=== PATIENT | female | born 1960 | race Caucasian/White ===

== ENCOUNTER 2018-01-24 02:06 | Inpatient (IN) | payer OTHER ==
[~2018-01-24] VITALS: Ht 177.8 cm; Wt 102.8 kg
[2018-01-24 02:18] VITALS: BP 148/65; PULSE 62; RESP 18; O2SAT 97
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
[2018-01-24] MEDS ORDERED: METOCLOPRAMIDE HCL 10 MG/2 ML VIAL IV PUSH ONE (03:15)
[2018-01-24] MEDS ORDERED: SODIUM CHLOR 0.9% 1000 ML INJ 1,000 ML IV ONE (03:15)
[2018-01-24] MEDS ORDERED: MORPHINE SULFATE 8 MG/ML INJ IV PUSH ONE (03:15)
[2018-01-24] MEDS ORDERED: SODIUM CHLOR 0.9% 1000 ML INJ 1,000 ML IV SCH (04:29)
[2018-01-24] MEDS ORDERED: ACETAMINOPHEN 325 MG TAB PO PRN (04:30)
[2018-01-24] MEDS ORDERED: SODIUM CHLORIDE 0.9% FLUSH 10 ML FLUSH IV FLUSH PRN (04:30)
[2018-01-24] MEDS ORDERED: METOCLOPRAMIDE HCL 10 MG/2 ML VIAL IV PUSH PRN (04:30)
[2018-01-24] MEDS ORDERED: BISACODYL 10 MG SUPP RECTAL PRN (04:30)
[2018-01-24] MEDS ORDERED: MORPHINE SULFATE 4 MG/ML INJ IV PRN (04:45)
[2018-01-24 05:27] VITALS: BP 132/64; PULSE 63; RESP 16; TEMP 97.6; O2SAT 97
[2018-01-24] MEDS: MORPHINE SULFATE 4 MG/ML INJ IV PRN ×2 (07:03→23:49)
[2018-01-24] MEDS ORDERED: GENTAMICIN SULFATE 80 MG/2 ML VIAL ONE (09:14)
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
[2018-01-24] MEDS ORDERED: VANCOMYCIN HCL 1000 MG VIAL ONE (09:32)
[2018-01-24] MEDS ORDERED: ceFAZolin 2 GM PREMIX 50 ML ONE (09:32)
[2018-01-24] MEDS ORDERED: FAMOTIDINE 20 MG/2 ML VIAL ONE (09:35)
[2018-01-24] MEDS ORDERED: ACETAMINOPHEN 1000 MG/100 ML 100 ML IV ONE ×2 (09:35→10:30)
[2018-01-24] MEDS ORDERED: LACTATED RINGER'S 1000 ML IV PRN (09:45)
[2018-01-24] MEDS ORDERED: METOPROLOL TARTRATE 25 MG TAB PO PRN (09:45)
[2018-01-24] MEDS ORDERED: SODIUM CHLORID 0.9% 500 ML IV PRN (09:45)
[2018-01-24] MEDS ORDERED: FAMOTIDINE 20 MG/2 ML VIAL IV ONE (10:30)
[2018-01-24] MEDS: LACTATED RINGER'S 1000 ML INJ 1,000 ML IV SCH (11:42)
[2018-01-24] MEDS ORDERED: Post-op Orders (for Pharmacy) XX ONE (11:45)
[2018-01-24] MEDS ORDERED: diphenhydrAMINE HCL 25 MG CAP PO PRN (11:45)
[2018-01-24] MEDS: ERGOCALCIFEROL (VIT D2) 50,000 UNIT CAP PO SCH (11:45)
[2018-01-24] MEDS ORDERED: ONDANSETRON ODT 4 MG TAB PO PRN (11:45)
[2018-01-24] MEDS ORDERED: NURSING INFORMATION XX PRN (11:45)
[2018-01-24] MEDS ORDERED: NALOXONE HCL 0.4 MG/ML AMP IV PUSH PRN (11:45)
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
[2018-01-24] MEDS ORDERED: DEXAMETHASONE SOD PHOS 4 MG/ML VIAL IV ONE (12:00)
[2018-01-24] MEDS ORDERED: GLYCOPYRROLATE 1 MG/5 ML SYRINGE IV PUSH ONE (12:00)
[2018-01-24] MEDS ORDERED: ePHEDrine/NS 25 MG/5 ML SYRINGE IV ONE (12:00)
[2018-01-24] MEDS ORDERED: LIDOCAINE HCL 1% PF 5 ML SYRINGE OTHER ONE (12:00)
[2018-01-24] MEDS ORDERED: NEOSTIGMINE 5 MG/5 ML SYRINGE IV PUSH ONE (12:00)
[2018-01-24] MEDS ORDERED: ROCURONIUM INJ 50 MG/5 ML SYRINGE IV PUSH ONE (12:00)
[2018-01-24] MEDS ORDERED: ONDANSETRON HCL 4 MG/2 ML VIAL IV ONE (12:00)
[2018-01-24] MEDS ORDERED: PROPOFOL 200 MG/20 ML AMP IV ONE (12:00)
[2018-01-24] MEDS ORDERED: LACTATED RINGER'S 1000 ML INJ 1,000 ML IV ONE (12:00)
[2018-01-24] MEDS ORDERED: *morphine SULFATE 8 MG/ML PERIprocedure ONLY ONE (12:03)
[2018-01-24] MEDS ORDERED: *MEPERIDINE 25 MG INJ VIAL PERIprocedural Use ONLY ONE (12:19)
[2018-01-24] MEDS ORDERED: DO NOT ADM ANY ANTICOAGULANT DRUGS PRN (12:30)
[2018-01-24] MEDS: CALCIUM/VITAMIN D 250 MG/125 U TAB PO SCH ×2 (13:00→17:51)
--- NOTE | 2018-01-24 14:31 | RADRPT ---
EXAM DATE: 01/24/2018 1:45 PM EDT AGE/SEX: 57 years / Female INDICATIONS: ORIF right tibial plateau fracture. CLINICAL DATA: This is the patient's initial encounter. Patient reports that signs and symptoms have been present for 1 day and indicates a pain score of Nonresponsive. MEDICAL/SURGICAL HISTORY: Non-responsive. Non-responsive. COMPARISON: No prior [facility] exams available for comparison. FINDINGS: AP and lateral spot fluoroscopic images obtained in the operating room during a procedure demonstrate s placement of a lateral proximal tibial side plate with multiple interlocking screws. Cement materia l is also present within the lateral and mid tibial metaphysis. CONCLUSION: Images obtained during right tibia ORIF, as above. Electronically signed by: Henrique Roman MD 01/24/2018 2:29 PM EDT
[2018-01-24] MEDS ORDERED: *morphine SULFATE 4 MG/ML PERIprocedure ONLY ONE ×2 (15:22→16:03)
--- NOTE | 2018-01-24 15:29 | EKG ---
Date Performed: 01/24/2018 Time Performed: 08:33:22 PTAGE: 57 years EKG: SINUS BRADYCARDIA BORDERLINE ECG NO PREVIOUS TRACING DOCTOR: Yuly Garcia Interpretating Date/Time 01/24/2018 15:26:11
[2018-01-24 16:00] VITALS: BP 108/55; PULSE 73; RESP 18; TEMP 99.1; O2SAT 91
[2018-01-24] MEDS: ACETAMINOPHEN/HYDROcodone 325 MG/10 MG TAB PO PRN (17:12)
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
[2018-01-24] MEDS: ceFAZolin 2 GM PREMIX 50 ML IV SCH (17:52)
[2018-01-24] MEDS ORDERED: cloNIDine HCL 0.1 MG TAB PO PRN (18:00)
[2018-01-24 20:25] VITALS: BP 103/73; PULSE 78; RESP 17; TEMP 97.6; O2SAT 96
[2018-01-24] MEDS: SODIUM CHLORIDE 0.9% FLUSH 10 ML FLUSH IV FLUSH SCH (21:00)
[2018-01-24] MEDS: VANCOMYCIN INJ 1,000 MG in SODIUM CHLOR 0.9% 250 ML INJ 250 ML IV SCH (21:42)
[2018-01-24] MEDS: DOCUSATE SODIUM 50 MG/SENNA 8.6 MG TAB PO SCH (21:42)
[2018-01-24] MEDS: ACETAMINOPHEN/HYDROcodone 325 MG/7.5 MG TAB PO PRN (22:46)
[2018-01-25] MEDS: LACTATED RINGER'S 1000 ML INJ 1,000 ML IV SCH ×2 (00:12→12:42)
[2018-01-25 00:50] VITALS: BP 107/65; PULSE 61; RESP 17; TEMP 97.7; O2SAT 96
[2018-01-25] MEDS: ceFAZolin 2 GM PREMIX 50 ML IV SCH ×3 (01:45→17:45)
[2018-01-25] MEDS: ACETAMINOPHEN/HYDROcodone 325 MG/10 MG TAB PO PRN ×6 (02:43→21:38)
[2018-01-25] MEDS: MORPHINE SULFATE 4 MG/ML INJ IV PRN ×2 (03:56→18:38)
[2018-01-25 04:40] VITALS: BP 115/56; PULSE 68; RESP 17; TEMP 97.7; O2SAT 96
--- NOTE | 2018-01-25 06:35 | PD.ORT.PN ---
Subjective Subjective Remarks Patient complains of pain. Status post ORIF right lateral tibial plateau fracture on 01/24/2018 Objective Vitals Vital Signs Date Time Temp Pulse Resp B/P (MAP) Pulse Ox O2 Delivery O2 Flow Rate FiO2 01/25/18 04:40 97.7 68 17 115/56 (75) 96 01/25/18 00:50 97.7 61 17 107/65 (79) 96 01/24/18 20:25 97.6 78 17 103/73 (83) 96 01/24/18 19:51 Nasal Cannula 2.00 01/24/18 16:15 97.6 63 20 116/59 (78) 97 Nasal Cannula 3 01/24/18 16:00 99.1 73 18 108/55 (72) 91 01/24/18 15:00 63 20 116/59 (78) 97 Nasal Cannula 3 01/24/18 14:00 64 20 108/57 (74) 97 Nasal Cannula 3 01/24/18 13:00 66 20 130/61 (84) 91 Nasal Cannula 3 01/24/18 12:45 65 20 145/63 (90) 93 Nasal Cannula 3 01/24/18 12:30 62 20 138/65 (89) 97 Nasal Cannula 3 01/24/18 12:15 68 20 140/69 (92) 97 Nasal Cannula 3 01/24/18 11:57 97.6 69 20 140/66 (90) 95 Nasal Cannula 3 I/O 01/24/18 01/24/18 01/24/18 01/25/18 01/25/18 01/25/18 07:00 15:00 23:00 07:00 15:00 23:00 Intake Total 1400 ml 396 ml 480 ml Output Total 50 ml Balance 1350 ml 396 ml 480 ml Intake Oral 480 ml IV Total 396 ml Other 1400 ml Output Estimated Blood Loss 50 ml # Voids 3 # Bowel Movements 0 Objective Remarks Patient is awake and alert. Appears mildly anxious. Right lower extremity has clean dry dressings in place. Neurovascularly intact right foot. Minimal pain with passive motion of toes and ankle. Assessment & Plan Assessment and Plan Postop day #1 status post ORIF right lateral tibial plateau strict nonweightbearing right leg, no quad sets or leg lifts Lovenox We will add gabapentin and ibuprofen for pain control Physical therapy consult Case management consult for discharge planning Bharat Morales MD Jan 25, 2018 06:35
[2018-01-25 08:01] VITALS: BP 95/52; PULSE 69; RESP 18; TEMP 97.9; O2SAT 94
[2018-01-25 08:18] LABS: AUTOMATED NEUTROPHIL # 1.3 TH/MM3 (1.8-7.7); BASOPHIL % 0.4 % (0.0-2.0); EOSINOPHIL % 0.7 % (0.0-4.0); HEMATOCRIT 31.6 % (35.0-46.0); HEMOGLOBIN 10.7 GM/DL (11.6-15.3); LYMPH % 39.2 % (9.0-44.0); MEAN CELL VOLUME 98.5 FL (80.0-100.0); MEAN CORPUSCULAR HEMOGLOBIN 33.3 PG (27.0-34.0); MEAN CORPUSCULAR HGB CONC 33.8 % (32.0-36.0); MEAN PLATELET VOLUME 8.4 FL (7.0-11.0); MONO % 9.6 % (0.0-8.0); MONOCYTE # 0.2 TH/MM3 (0-0.9); NEUT % 50.1 % (16.0-70.0); PLATELET COUNT 128 TH/MM3 (150-450); RED BLOOD COUNT 3.21 MIL/MM3 (4.00-5.30); RED CELL DISTRIBUTION WIDTH 17.2 % (11.6-17.2); WHITE BLOOD COUNT 2.6 TH/MM3 (4.0-11.0)
[2018-01-25 08:39] LABS: BICARBONATE 22.6 MEQ/L (21.0-32.0); CALCIUM 7.8 MG/DL (8.5-10.1); CREATININE 0.83 MG/DL (0.50-1.00)
[2018-01-25] MEDS: DOCUSATE SODIUM 50 MG/SENNA 8.6 MG TAB PO SCH ×2 (08:44→22:22)
[2018-01-25] MEDS: SODIUM CHLORIDE 0.9% FLUSH 10 ML FLUSH IV FLUSH SCH ×2 (08:44→22:22)
[2018-01-25] MEDS: CHOLECALCIFEROL (VIT D3) 1000 UNIT TAB PO SCH (08:44)
[2018-01-25] MEDS: IBUPROFEN 600 MG TAB PO SCH ×2 (08:44→17:44)
[2018-01-25] MEDS: GABAPENTIN 300 MG CAP PO SCH ×2 (08:44→22:22)
[2018-01-25] MEDS: CALCIUM/VITAMIN D 250 MG/125 U TAB PO SCH ×3 (08:44→17:45)
[2018-01-25] MEDS: ENOXAPARIN SODIUM 30 MG/0.3 ML SYRINGE SQ SCH (10:39)
[2018-01-25] MEDS: VANCOMYCIN INJ 1,000 MG in SODIUM CHLOR 0.9% 250 ML INJ 250 ML IV SCH (10:41)
[2018-01-25 12:13] VITALS: BP 126/61; PULSE 60; RESP 17; TEMP 98.3; O2SAT 95
[2018-01-25 16:00] VITALS: BP 99/54; PULSE 63; RESP 18; TEMP 98.2; O2SAT 95
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
--- NOTE | 2018-01-25 17:36 | RADRPT ---
EXAM DATE: 01/25/2018 5:32 PM EDT AGE/SEX: 57 years / Female INDICATIONS: Shortness of breath. CLINICAL DATA: This is the patient's subsequent encounter. Patient reports that signs and symptoms h ave been present for 1 day and indicates a pain score of 0/10. MEDICAL/SURGICAL HISTORY: None. None. COMPARISON: No prior exams available for comparison. FINDINGS: The lungs are clear without infiltrate, nodule, or mass. There is no appreciable pleural effusion for technique. Heart and mediastinum are unremarkable. CONCLUSION: No acute cardiopulmonary disease. Electronically signed by: Ajay Gordillo MD 01/25/2018 5:35 PM EDT
[2018-01-25 20:00] VITALS: BP 117/58; PULSE 65; RESP 20; TEMP 98.5; O2SAT 94
[2018-01-25 20:13] LABS: % SATURATION IRON PROFILE 8.2 % (20-50); IRON (FE) 25 MCG/DL (50-170); TOTAL IRON BINDING CAPACITY 305 MCG/DL (250-450)
[2018-01-25 20:39] LABS: FERRITIN 21 NG/ML (8-252); FOLATE 6.7 NG/ML (3.1-17.5)
[2018-01-26] VITALS: BP 111/55; PULSE 65; RESP 20; TEMP 98.5; O2SAT 96
[2018-01-26] MEDS: IBUPROFEN 600 MG TAB PO SCH ×3 (00:57→16:47)
[2018-01-26] MEDS: LACTATED RINGER'S 1000 ML INJ 1,000 ML IV SCH ×2 (01:12→12:16)
[2018-01-26] MEDS: ceFAZolin 2 GM PREMIX 50 ML IV SCH ×2 (01:53→08:48)
[2018-01-26] MEDS: ACETAMINOPHEN/HYDROcodone 325 MG/10 MG TAB PO PRN ×5 (01:54→18:02)
[2018-01-26 04:00] VITALS: BP 133/63; PULSE 75; RESP 18; TEMP 98.7; O2SAT 92
[2018-01-26 04:18] LABS: BILIRUBIN, URINE NEG (NEG); BLOOD, URINE NEG (NEG); GLUCOSE,URINE NEG (NEG); KETONE, URINE TRACE mg/dL (NEG); MUCUS URINE FEW /lpf (OCC); NITRITE,URINE NEG (NEG); SQUAMOUS EPITHELIAL CELL URINE 1 /hpf (0-5); URINE COLOR YELLOW (YELLW/STRAW); URINE LEUKOCYTE ESTERASE NEG (NEG)
[2018-01-26 05:54] LABS: AUTOMATED NEUTROPHIL # 0.9 TH/MM3 (1.8-7.7); BASOPHIL % 0.3 % (0.0-2.0); HEMOGLOBIN 9.5 GM/DL (11.6-15.3); LYMPH % 46.1 % (9.0-44.0); LYMPHOCYTE # 0.9 TH/MM3 (1.0-4.8); MEAN CELL VOLUME 97.6 FL (80.0-100.0); MEAN CORPUSCULAR HEMOGLOBIN 33.2 PG (27.0-34.0); MEAN PLATELET VOLUME 9.2 FL (7.0-11.0); MONO % 9.5 % (0.0-8.0); MONOCYTE # 0.2 TH/MM3 (0-0.9); NEUT % 43.1 % (16.0-70.0); PLATELET COUNT 107 TH/MM3 (150-450); RED BLOOD COUNT 2.87 MIL/MM3 (4.00-5.30); RED CELL DISTRIBUTION WIDTH 16.4 % (11.6-17.2)
[2018-01-26] MEDS ORDERED: WALKER WHEELS/F1 MIS (06:31)
[2018-01-26] MEDS ORDERED: WHEEMIS3 (06:31)
[2018-01-26] MEDS ORDERED: VITA500012 PO (06:31)
[2018-01-26] MEDS ORDERED: XARE10TA PO (06:31)
[2018-01-26] MEDS ORDERED: CALCTAB19 PO (06:31)
[2018-01-26] MEDS ORDERED: VITA2000 PO (06:31)
[2018-01-26] MEDS ORDERED: HYDR-3583 PO (06:31)
--- NOTE | 2018-01-26 06:33 | PD.ORT.PN ---
Subjective Subjective Remarks POD 2 s/p ORIF right tibial plateau doing well. pain controlled. out of bed with therapy Objective Vitals Vital Signs Date Time Temp Pulse Resp B/P (MAP) Pulse Ox O2 Delivery O2 Flow Rate FiO2 01/26/18 04:00 98.7 75 18 133/63 (86) 92 01/26/18 00:00 98.5 65 20 111/55 (73) 96 01/25/18 20:00 98.5 65 20 117/58 (77) 94 01/25/18 18:46 17 01/25/18 18:46 17 01/25/18 18:46 17 01/25/18 16:00 98.2 63 18 99/54 (69) 95 01/25/18 12:13 98.3 60 17 126/61 (82) 95 01/25/18 08:15 Room Air 01/25/18 08:01 97.9 69 18 95/52 (66) 94 I/O 01/25/18 01/25/18 01/25/18 01/26/18 01/26/18 01/26/18 07:00 15:00 23:00 07:00 15:00 23:00 Intake Total 480 ml 300 ml 950 ml Balance 480 ml 300 ml 950 ml Intake Oral 480 ml 900 ml IV Total 300 ml 50 ml # Voids 3 2 # Bowel Movements 0 1 Result Diagram: 01/26/18 0414 01/25/18 0758 Objective Remarks RLE: dressings clean and dry. intact. NVI. compartments soft. +CKS Assessment & Plan Assessment and Plan Postop day #2 status post ORIF right lateral tibial plateau strict nonweightbearing right leg, no quad sets or leg lifts Lovenox daily dressing changes CM for DC to SNF f/u with Carmen or JONI in 2 weeks Eron Armendariz/Teaching Assistant JONI Jan 26, 2018 06:33
[2018-01-26 07:24] LABS: BANDS 3 % (0-6); BASOPHILS 1 % (0-2); LYMPHOCYTES 33 % (9-44); MONOCYTES 11 % (0-8); POLYS (SEG NEUTROPHILS) 49 % (16-70)
[2018-01-26 08:12] VITALS: BP 110/56; PULSE 68; RESP 19; TEMP 98.2; O2SAT 93
[2018-01-26] MEDS: CALCIUM/VITAMIN D 250 MG/125 U TAB PO SCH ×3 (08:47→16:47)
[2018-01-26] MEDS: GABAPENTIN 300 MG CAP PO SCH ×2 (08:47→21:46)
[2018-01-26] MEDS: CHOLECALCIFEROL (VIT D3) 1000 UNIT TAB PO SCH (08:47)
[2018-01-26] MEDS: DOCUSATE SODIUM 50 MG/SENNA 8.6 MG TAB PO SCH ×2 (08:47→21:46)
[2018-01-26] MEDS: SODIUM CHLORIDE 0.9% FLUSH 10 ML FLUSH IV FLUSH SCH ×2 (08:48→21:47)
[2018-01-26] MEDS: SENNOSIDES 8.6 MG TAB PO PRN (08:52)
[2018-01-26] MEDS: ENOXAPARIN SODIUM 30 MG/0.3 ML SYRINGE SQ SCH (10:15)
[2018-01-26 11:39] LABS: RETIC # 72.1 MIL/L (20.0-150.0); RETIC % 2.6 % (0.4-3.0)
[2018-01-26 12:09] VITALS: BP 102/54; PULSE 76; RESP 18; TEMP 98.9; O2SAT 93
[2018-01-26 12:59] LABS: PROTHROMBIN TIME - PATIENT 10.1 SEC (9.8-11.6)
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
[2018-01-26 16:06] VITALS: BP 111/56; PULSE 69; RESP 19; TEMP 98.1; O2SAT 93
[2018-01-26] MEDS: BACITRACIN TOP OINT 15 GM TUBE TOPICAL SCH (16:51)
[2018-01-26] MEDS: MAGNESIUM HYDROXIDE SUSP 30 ML CUP PO PRN (18:03)
[2018-01-26 20:00] VITALS: BP 126/60; PULSE 71; RESP 18; TEMP 98.1; O2SAT 94
[2018-01-26 20:20] LABS: HEMOGLOBIN A1C 5.3 % (4.3-6.0)
[2018-01-26] MEDS: ACETAMINOPHEN/HYDROcodone 325 MG/7.5 MG TAB PO PRN (21:46)
[2018-01-27] VITALS: BP 120/77; PULSE 67; RESP 18; TEMP 99.3; O2SAT 94
[2018-01-27] MEDS: IBUPROFEN 600 MG TAB PO SCH
[2018-01-27] MEDS: ACETAMINOPHEN/HYDROcodone 325 MG/10 MG TAB PO PRN ×6 (02:08→22:26)
[2018-01-27 04:00] VITALS: BP 129/69; PULSE 71; RESP 18; TEMP 99.7; O2SAT 94
[2018-01-27] MEDS ORDERED: MORPHINE SULFATE 4 MG/ML INJ IV PUSH ONE (04:00)
--- NOTE | 2018-01-27 06:45 | PD.ORT.PN ---
Subjective Subjective Remarks Patient complains of pain. Status post ORIF right lateral tibial plateau fracture on 01/24/2018 Objective Vitals Vital Signs Date Time Temp Pulse Resp B/P (MAP) Pulse Ox O2 Delivery O2 Flow Rate FiO2 01/27/18 04:00 99.7 71 18 129/69 (89) 94 01/27/18 00:00 99.3 67 18 120/77 (91) 94 01/26/18 20:00 98.1 71 18 126/60 (82) 94 01/26/18 17:58 18 01/26/18 16:06 98.1 69 19 111/56 (74) 93 01/26/18 15:33 18 01/26/18 12:09 98.9 76 18 102/54 (70) 93 01/26/18 08:12 98.2 68 19 110/56 (74) 93 I/O 01/26/18 01/26/18 01/26/18 01/27/18 01/27/18 01/27/18 07:00 15:00 23:00 07:00 15:00 23:00 Intake Total 800 ml 1400 ml 480 ml Output Total 400 ml Balance 400 ml 1400 ml 480 ml Intake Oral 800 ml 1400 ml 480 ml Output Urine Total 400 ml # Voids 3 5 Result Diagram: 01/26/18 0414 01/25/18 0758 Other Results Laboratory Tests Test 01/26/18 12:00 Prothromb Time International Ratio 1.0 RATIO Prothrombin Time 10.1 SEC (9.8-11.6) Objective Remarks RLE: dressings clean and dry. intact. NVI. compartments soft. +CKS Pt is awake and alert, NAD Assessment & Plan Assessment and Plan Postop day #3 status post ORIF right lateral tibial plateau strict nonweightbearing right leg, no quad sets or leg lifts Lovenox daily dressing changes CM for DC to SNF today today f/u with Carmen or JONI in 2 weeks Bharat Morales MD Jan 27, 2018 06:45
[2018-01-27] MEDS: CHOLECALCIFEROL (VIT D3) 1000 UNIT TAB PO SCH (07:12)
[2018-01-27] MEDS: LACTULOSE SYRUP 20 GM/30 ML CUP PO PRN (07:12)
[2018-01-27] MEDS: CALCIUM/VITAMIN D 250 MG/125 U TAB PO SCH ×3 (07:12→18:24)
[2018-01-27] MEDS: GABAPENTIN 300 MG CAP PO SCH ×2 (07:13→22:08)
[2018-01-27] MEDS: DOCUSATE SODIUM 50 MG/SENNA 8.6 MG TAB PO SCH ×2 (07:13→22:08)
[2018-01-27] MEDS: BACITRACIN TOP OINT 15 GM TUBE TOPICAL SCH (07:13)
[2018-01-27] MEDS: SODIUM CHLORIDE 0.9% FLUSH 10 ML FLUSH IV FLUSH SCH ×2 (07:14→22:08)
[2018-01-27 08:00] VITALS: BP 129/64; PULSE 78; RESP 18; TEMP 98.2; O2SAT 94
[2018-01-27 08:02] LABS: HEMATOCRIT 30.6 % (35.0-46.0); HEMOGLOBIN 10.6 GM/DL (11.6-15.3); MEAN CELL VOLUME 97.6 FL (80.0-100.0); MEAN CORPUSCULAR HEMOGLOBIN 33.8 PG (27.0-34.0); MEAN CORPUSCULAR HGB CONC 34.6 % (32.0-36.0); PLATELET COUNT 131 TH/MM3 (150-450); RED BLOOD COUNT 3.14 MIL/MM3 (4.00-5.30); RED CELL DISTRIBUTION WIDTH 16.1 % (11.6-17.2); WHITE BLOOD COUNT 2.2 TH/MM3 (4.0-11.0)
[2018-01-27 08:17] LABS: ALBUMIN 2.9 GM/DL (3.4-5.0); BICARBONATE 27.6 MEQ/L (21.0-32.0); CALCIUM 8.4 MG/DL (8.5-10.1); CREATININE 0.56 MG/DL (0.50-1.00); DIRECT BILIRUBIN ADULT 0.1 MG/DL (0.0-0.2); MAGNESIUM 2.3 MG/DL (1.5-2.5)
[2018-01-27 08:19] LABS: INDIRECT BILIRUBIN 0.4 MG/DL (0.0-0.8); TOTAL BILIRUBIN ADULT 0.5 MG/DL (0.2-1.0); TOTAL PROTEIN 6.4 GM/DL (6.4-8.2)
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
[2018-01-27] MEDS: ENOXAPARIN SODIUM 30 MG/0.3 ML SYRINGE SQ SCH (11:01)
[2018-01-27 12:00] VITALS: BP 125/65; PULSE 82; RESP 18; TEMP 98.3; O2SAT 95
[2018-01-27 13:30] LABS: IRON (FE) 16 MCG/DL (50-170)
[2018-01-27 13:56] LABS: % SATURATION IRON PROFILE 4.9 % (20-50); FERRITIN 29 NG/ML (8-252); FOLATE 10.7 NG/ML (3.1-17.5); TOTAL IRON BINDING CAPACITY 323 MCG/DL (250-450)
--- NOTE | 2018-01-27 15:49 | RADRPT ---
EXAM DATE: 01/27/2018 3:45 PM EDT AGE/SEX: 57 years / Female INDICATIONS: Hepatomegaly. CLINICAL DATA: This is the patient's initial encounter. Patient reports that signs and symptoms have been present for 4 - 6 days and indicates a pain score of 3/10. MEDICAL/SURGICAL HISTORY: . Joint pain. Tonsillectomy. Hysterectomy. section. COMPARISON: No prior exams available for comparison. MEASUREMENTS (cm x cm x cm): Liver:__ 17.8 cm cm length Common Bile Duct:__ 4mm Right Kidney:__ 13.4 x 5.1 x 5.0 cm FINDINGS: Liver: Coarse echotexture suggesting fatty change or diffuse hepatocellular process. Portal Vein: Hepatopedal flow seen in portal vein. Common Duct: No intraluminal mass or stone visualized. Gallbladder: The gallbladder appears distended measures 11 cm without definite gallstones. There is no pericholecystic fluid. Gallbladder Wall: 5 mm Pancreas: The visualized portions are within normal limits Right Kidney: No mass or hydronephrosis Other: Spleen measures 11.7 cm in size without focal lesions. CONCLUSION: 1. Distended gallbladder without definite stones. 2. The liver is slightly echogenic which may be due to fatty infiltration and or hepatocellular dysf unction. Electronically signed by: Ajay Gordillo MD 01/27/2018 3:48 PM EDT
[2018-01-27 16:00] VITALS: BP 125/65; PULSE 80; RESP 18; TEMP 98.1; O2SAT 95
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
[2018-01-27 20:00] VITALS: BP 147/68; PULSE 84; RESP 22; TEMP 99.1; O2SAT 95
[2018-01-28] VITALS: BP 143/76; PULSE 76; RESP 20; TEMP 99.3; O2SAT 95
[2018-01-28] MEDS: ACETAMINOPHEN/HYDROcodone 325 MG/10 MG TAB PO PRN ×5 (01:58→21:56)
[2018-01-28 06:21] LABS: HEMATOCRIT 30.1 % (35.0-46.0); HEMOGLOBIN 10.4 GM/DL (11.6-15.3); MEAN CELL VOLUME 97.7 FL (80.0-100.0); MEAN CORPUSCULAR HEMOGLOBIN 33.6 PG (27.0-34.0); MEAN CORPUSCULAR HGB CONC 34.4 % (32.0-36.0); MEAN PLATELET VOLUME 8.3 FL (7.0-11.0); PLATELET COUNT 144 TH/MM3 (150-450); RED BLOOD COUNT 3.09 MIL/MM3 (4.00-5.30); RED CELL DISTRIBUTION WIDTH 15.8 % (11.6-17.2)
[2018-01-28 06:46] LABS: BICARBONATE 28.6 MEQ/L (21.0-32.0); CALCIUM 8.5 MG/DL (8.5-10.1); CREATININE 0.52 MG/DL (0.50-1.00)
[2018-01-28 08:00] VITALS: BP 157/80; PULSE 73; RESP 18; TEMP 98; O2SAT 95
[2018-01-28] MEDS: CHOLECALCIFEROL (VIT D3) 1000 UNIT TAB PO SCH (09:58)
[2018-01-28] MEDS: CALCIUM/VITAMIN D 250 MG/125 U TAB PO SCH ×3 (09:59→17:34)
[2018-01-28] MEDS: GABAPENTIN 300 MG CAP PO SCH ×2 (10:01→21:57)
[2018-01-28] MEDS: DOCUSATE SODIUM 50 MG/SENNA 8.6 MG TAB PO SCH ×2 (10:01→21:57)
[2018-01-28] MEDS: SODIUM CHLORIDE 0.9% FLUSH 10 ML FLUSH IV FLUSH SCH ×2 (10:02→21:57)
[2018-01-28] MEDS: ENOXAPARIN SODIUM 30 MG/0.3 ML SYRINGE SQ SCH (10:02)
[2018-01-28] MEDS: BACITRACIN TOP OINT 15 GM TUBE TOPICAL SCH (10:04)
[2018-01-28] MEDS ORDERED: POTASSIUM CHLORIDE 20 MEQ CONTROLLED RELEASE TAB PO ONE (10:15)
[2018-01-28 12:00] VITALS: BP_SYST 154; BP_SYST 165; BP_DIAS 65; BP_DIAS 69; PULSE 62; PULSE 96; RESP 18; TEMP 98; O2SAT 94; O2SAT 96
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
[2018-01-28] MEDS: ACETAMINOPHEN/HYDROcodone 325 MG/7.5 MG TAB PO PRN (14:08)
[2018-01-28 16:00] VITALS: BP 149/66; PULSE 81; RESP 18; TEMP 98; O2SAT 97
[2018-01-28 20:00] VITALS: BP 147/63; PULSE 73; RESP 20; TEMP 99.1; O2SAT 96
[2018-01-28] MEDS: ZOLPIDEM TARTRATE 5 MG TAB PO PRN (21:56)
[2018-01-29] VITALS: BP 134/65; PULSE 69; RESP 20; TEMP 98.4; O2SAT 95
[2018-01-29] MEDS: ACETAMINOPHEN/HYDROcodone 325 MG/10 MG TAB PO PRN ×8 (01:00→21:19)
[2018-01-29 04:00] VITALS: BP 118/61; PULSE 80; RESP 20; TEMP 98.2; O2SAT 94
[2018-01-29 08:00] VITALS: BP 136/69; PULSE 73; RESP 18; TEMP 98.9; O2SAT 94
[2018-01-29 08:36] LABS: AUTOMATED NEUTROPHIL # 0.6 TH/MM3 (1.8-7.7); BASOPHIL % 0.6 % (0.0-2.0); EOSINOPHIL # 0.1 TH/MM3 (0-0.4); EOSINOPHIL % 4.7 % (0.0-4.0); HEMATOCRIT 29.2 % (35.0-46.0); HEMOGLOBIN 10.2 GM/DL (11.6-15.3); LYMPH % 53.6 % (9.0-44.0); LYMPHOCYTE # 1.1 TH/MM3 (1.0-4.8); MEAN CELL VOLUME 96.1 FL (80.0-100.0); MEAN CORPUSCULAR HEMOGLOBIN 33.5 PG (27.0-34.0); MEAN CORPUSCULAR HGB CONC 34.9 % (32.0-36.0); MEAN PLATELET VOLUME 8.9 FL (7.0-11.0); MONO % 9.3 % (0.0-8.0); MONOCYTE # 0.2 TH/MM3 (0-0.9); NEUT % 31.8 % (16.0-70.0); PLATELET COUNT 159 TH/MM3 (150-450); RED BLOOD COUNT 3.04 MIL/MM3 (4.00-5.30); RED CELL DISTRIBUTION WIDTH 15.9 % (11.6-17.2)
[2018-01-29] MEDS: DOCUSATE SODIUM 50 MG/SENNA 8.6 MG TAB PO SCH ×2 (09:00→21:19)
[2018-01-29 09:15] LABS: BANDS 1 % (0-6); BASOPHILS 1 % (0-2); LYMPHOCYTES 55 % (9-44); MONOCYTES 2 % (0-8); NEUTROPHIL # MANUAL DIFF 0.8 TH/MM3 (1.8-7.7); POLYS (SEG NEUTROPHILS) 39 % (16-70)
[2018-01-29] MEDS: SODIUM CHLORIDE 0.9% FLUSH 10 ML FLUSH IV FLUSH SCH (09:22)
[2018-01-29] MEDS: GABAPENTIN 300 MG CAP PO SCH ×2 (09:22→21:19)
[2018-01-29] MEDS: ENOXAPARIN SODIUM 30 MG/0.3 ML SYRINGE SQ SCH (09:22)
[2018-01-29] MEDS: BACITRACIN TOP OINT 15 GM TUBE TOPICAL SCH (09:22)
[2018-01-29] MEDS: CALCIUM/VITAMIN D 250 MG/125 U TAB PO SCH ×3 (09:22→17:06)
[2018-01-29] MEDS: CHOLECALCIFEROL (VIT D3) 1000 UNIT TAB PO SCH (09:22)
[2018-01-29 16:00] VITALS: BP 129/57; PULSE 75; RESP 18; TEMP 98.7; O2SAT 95
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
[2018-01-29 20:30] VITALS: BP 140/68; PULSE 71; RESP 16; TEMP 99; O2SAT 96
[2018-01-29] MEDS: ZOLPIDEM TARTRATE 5 MG TAB PO PRN (21:19)
[2018-01-29 23:50] VITALS: BP 135/64; PULSE 75; RESP 16; TEMP 99; O2SAT 96
[2018-01-30] MEDS: ACETAMINOPHEN/HYDROcodone 325 MG/10 MG TAB PO PRN ×6 (02:33→21:56)
[2018-01-30] MEDS: SODIUM CHLORIDE 0.9% FLUSH 10 ML FLUSH IV FLUSH SCH ×3 (06:05→21:57)
[2018-01-30 08:00] VITALS: BP 136/65; PULSE 73; RESP 18; TEMP 98.3; O2SAT 95
--- NOTE | 2018-01-30 08:06 | PD.ONC.PN ---
Subjective Subjective Remarks Patient seen and examined, vital signs, labs and medications reviewed. Subjectively; her major complaint is that of pain in her right knee. She tells me she was however able to walk about 50 steps yesterday with the help of a walker. She denies overt bleeding, difficulty breathing, chest pain, PND, orthopnea. Objective Data Date Time Temp Pulse Resp B/P (MAP) Pulse Ox O2 Delivery O2 Flow Rate FiO2 01/29/18 23:50 99.0 75 16 135/64 (87) 96 01/29/18 20:30 99.0 71 16 140/68 (92) 96 01/29/18 16:00 98.7 75 18 129/57 (81) 95 01/29/18 09:30 Room Air 01/30/18 01/30/18 01/30/18 07:00 15:00 23:00 Intake Total 720 ml Balance 720 ml Result Diagram: 01/29/18 0719 01/28/18 0501 Administered Medications Medications (Trade) Dose Ordered Sig/Larry Route PRN Reason Start Time Stop Time Status Last Admin Dose Admin Sodium Chloride (NS Flush) 2 ml BID IV FLUSH 01/24/18 09:00 01/30/18 06:05 Acetaminophen/ Hydrocodone Bitart ([place] 7.5-325 Mg) 1 tab Q4H PRN PO PAIN SCALE 6 TO 10 01/24/18 04:30 01/28/18 14:08 Magnesium Hydroxide (Milk Of Magnesia Liq) 30 ml Q12H PRN PO Mild constipation 01/24/18 04:30 01/26/18 18:03 Sennosides (Senokot) 17.2 mg Q12H PRN PO Moderate constipation 01/24/18 04:30 01/26/18 08:52 Lactulose (Lactulose Liq) 30 ml DAILY PRN PO SEVERE CONSITIPATION 01/24/18 04:30 01/27/18 07:12 Enoxaparin Sodium (Lovenox Inj) 30 mg Q24H SQ 01/25/18 11:00 01/29/18 09:22 Acetaminophen/ Hydrocodone Bitart ([place] 10-325 Mg) 1 tab Q3H PRN PO PAIN 3<10 01/24/18 11:45 01/30/18 06:05 Calcium/Vitamin D (Oscal-D 250-125) 250 mg TID PO 01/24/18 13:00 01/29/18 12:20 Cholecalciferol (Vitamin D3) 1,000 units DAILY PO 01/25/18 09:00 01/29/18 09:22 Senna/Docusate Sodium (Veena-Colace) 1 tab BID PO 01/24/18 21:00 01/29/18 21:19 Gabapentin (Neurontin) 300 mg BID PO 01/25/18 09:00 01/29/18 21:19 Bacitracin (Baciguent Oint) 1 applic DAILY TOPICAL 01/26/18 16:05 01/29/18 09:22 Zolpidem Tartrate (Ambien) 5 mg HS PRN PO insomnia 01/28/18 12:00 01/29/18 21:19 Objective Remarks GENERAL: Middle-aged lady, sitting up in bed, appears to be no acute distress, wearing sunglasses, she is obese , in no apparent distress. SKIN: No rashes, ecchymoses or lesions. Cool and dry. HEAD: Atraumatic. Normocephalic. No temporal or scalp tenderness. EYES: Pupils equal round and reactive. Extraocular motions intact. No scleral icterus. No injection or drainage. ENT: Nose without bleeding, purulent drainage or septal hematoma. Throat without erythema, tonsillar hypertrophy or exudate. Uvula midline. Airway patent. NECK: Trachea midline. No JVD or lymphadenopathy. Supple, nontender, no meningeal signs. CARDIOVASCULAR: Regular rate and rhythm without murmurs, gallops, or rubs. RESPIRATORY: Clear to auscultation. Breath sounds equal bilaterally. No wheezes , rales, or rhonchi. GASTROINTESTINAL: Abdomen soft, non-tender, nondistended. No hepato-splenomegaly , or palpable masses. No guarding. MUSCULOSKELETAL: Right leg in a removable cast, she has a big bag of ice on top of her right knee. Extremities without clubbing, cyanosis, or edema. No joint tenderness, effusion, or edema noted. No calf tenderness. Negative Homans sign bilaterally. NEUROLOGICAL: Awake and alert. Cranial nerves, visually impaired, no other sensory or motor deficits noted.. Motor and sensory grossly within normal limits. Five out of 5 muscle strength in all muscle groups. Normal speech. Assessment/Plan Assessment 57-year-old lady with pancytopenia, she has a low-grade neutropenia, minor thrombocytopenia and anemia which is normocytic. She tells me this is the first she has heard a abnormal blood counts and has in the past undergone blood work at various hospitals in this area as well as in [place] where she recently had cataract surgery. The patient denies alcohol abuse, she reports having been tested previously for hepatitis and was told she was negative. The patient denies other high risk activities she is a smoker however. I have requested an initial workup for her cytopenias including serum iron studies, LDH, serum protein electrophoresis, vitamin B12 and folic acid levels as well as review of her peripheral smear. Plan 1. Anemia and neutropenia: Workup thus far indicates no evidence of vitamin B12 or folic acid folic acid deficiency. Hepatitis screen and HIV screen were both negative as well. I requested a bone marrow biopsy to be done under CT guidance to rule out a primary bone marrow disorder such as myelodysplastic syndrome. Lovenox put on hold. Outpatient follow-up with oncology in the upcoming 2-3 weeks. Romel Zapata MD Jan 30, 2018 08:06
[2018-01-30] MEDS: MAGNESIUM HYDROXIDE SUSP 30 ML CUP PO PRN (08:40)
[2018-01-30] MEDS: CALCIUM/VITAMIN D 250 MG/125 U TAB PO SCH ×3 (08:40→17:31)
[2018-01-30] MEDS: GABAPENTIN 300 MG CAP PO SCH ×2 (08:40→21:57)
[2018-01-30] MEDS: CHOLECALCIFEROL (VIT D3) 1000 UNIT TAB PO SCH (08:40)
[2018-01-30] MEDS: DOCUSATE SODIUM 50 MG/SENNA 8.6 MG TAB PO SCH ×2 (08:40→21:00)
[2018-01-30 08:53] LABS: AUTOMATED NEUTROPHIL # 0.6 TH/MM3 (1.8-7.7); BASOPHIL % 0.3 % (0.0-2.0); EOSINOPHIL # 0.1 TH/MM3 (0-0.4); EOSINOPHIL % 4.1 % (0.0-4.0); HEMATOCRIT 32.2 % (35.0-46.0); HEMOGLOBIN 11.1 GM/DL (11.6-15.3); LYMPH % 55.2 % (9.0-44.0); LYMPHOCYTE # 1.1 TH/MM3 (1.0-4.8); MEAN CELL VOLUME 95.5 FL (80.0-100.0); MEAN CORPUSCULAR HEMOGLOBIN 32.9 PG (27.0-34.0); MEAN CORPUSCULAR HGB CONC 34.4 % (32.0-36.0); MEAN PLATELET VOLUME 8.4 FL (7.0-11.0); MONOCYTE # 0.2 TH/MM3 (0-0.9); NEUT % 31.4 % (16.0-70.0); PLATELET COUNT 187 TH/MM3 (150-450); RED BLOOD COUNT 3.37 MIL/MM3 (4.00-5.30); RED CELL DISTRIBUTION WIDTH 15.9 % (11.6-17.2); WHITE BLOOD COUNT 1.9 TH/MM3 (4.0-11.0)
[2018-01-30] MEDS: BACITRACIN TOP OINT 15 GM TUBE TOPICAL SCH (09:00)
[2018-01-30] MEDS: CYCLOBENZAPRINE HCL 10 MG TAB PO PRN ×2 (09:26→17:31)
[2018-01-30 11:42] LABS: BANDS 5 % (0-6); BASOPHILS 1 % (0-2); LYMPHOCYTES 55 % (9-44); MONOCYTES 9 % (0-8); NEUTROPHIL # MANUAL DIFF 0.6 TH/MM3 (1.8-7.7); OVALOCYTES 1+ (NORMAL); POLYS (SEG NEUTROPHILS) 27 % (16-70)
[2018-01-30 12:00] VITALS: BP 132/68; PULSE 61; RESP 18; TEMP 98.5; O2SAT 93
[2018-01-30] MEDS ORDERED: MIDAZOLAM HCL 2 MG/2 ML VIAL ONE ×2 (14:28→15:09)
[2018-01-30 15:30] VITALS: BP 113/74; PULSE 63; RESP 18; TEMP 97.5; O2SAT 91
[2018-01-30] MEDS ORDERED: LIDOCAINE HCL 1% 10 ML VIAL SQ ONE (15:39)
[2018-01-30 15:45] VITALS: BP 107/75; PULSE 56; RESP 18; O2SAT 95
[2018-01-30 16:00] VITALS: BP 122/60; PULSE 71; RESP 18; TEMP 97.3; O2SAT 96
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
[2018-01-30] MEDS: FUROSEMIDE 40 MG TAB PO SCH (17:31)
[2018-01-30 20:00] VITALS: BP 106/59; PULSE 66; RESP 17; TEMP 98.2; O2SAT 95
[2018-01-30 21:47] LABS: ALB/GLOB RATIO (SPE) 1.45 (1.39-2.23)
[2018-01-30] MEDS: ZOLPIDEM TARTRATE 5 MG TAB PO PRN (21:57)
[2018-01-31 00:01] VITALS: BP 133/60; PULSE 68; RESP 19; TEMP 97.9; O2SAT 94
[2018-01-31] MEDS: ACETAMINOPHEN/HYDROcodone 325 MG/10 MG TAB PO PRN ×4 (01:35→12:03)
[2018-01-31] MEDS: CYCLOBENZAPRINE HCL 10 MG TAB PO PRN ×2 (03:00→12:03)
[2018-01-31 05:00] LABS: HEMATOCRIT 30.8 % (35.0-46.0); HEMOGLOBIN 10.4 GM/DL (11.6-15.3); MEAN CELL VOLUME 95.9 FL (80.0-100.0); MEAN CORPUSCULAR HEMOGLOBIN 32.3 PG (27.0-34.0); MEAN CORPUSCULAR HGB CONC 33.7 % (32.0-36.0); MEAN PLATELET VOLUME 8.5 FL (7.0-11.0); PLATELET COUNT 181 TH/MM3 (150-450); RED BLOOD COUNT 3.21 MIL/MM3 (4.00-5.30); RED CELL DISTRIBUTION WIDTH 15.5 % (11.6-17.2)
[2018-01-31 05:18] LABS: BICARBONATE 31.7 MEQ/L (21.0-32.0); CALCIUM 8.7 MG/DL (8.5-10.1); CREATININE 0.66 MG/DL (0.50-1.00); MAGNESIUM 2.2 MG/DL (1.5-2.5)
[2018-01-31 08:00] VITALS: BP 123/62; PULSE 61; RESP 16; TEMP 98.4; O2SAT 95
--- NOTE | 2018-01-31 08:06 | PD.ONC.PN ---
Subjective Subjective Remarks Patient seen and examined, vital signs, labs medications reviewed. Procedure note from 01/30/2018; bone marrow biopsy was also reviewed. Subjectively patient denies acute complaints other than some pain in her right knee, she tells me she has been able to ambulate with the assistance of a walker. Objective Data Date Time Temp Pulse Resp B/P (MAP) Pulse Ox O2 Delivery O2 Flow Rate FiO2 01/31/18 00:01 97.9 68 19 133/60 (84) 94 01/30/18 21:59 Room Air 01/30/18 20:00 98.2 66 17 106/59 (75) 95 01/30/18 16:00 97.3 71 18 122/60 (80) 96 01/30/18 15:45 56 18 107/75 (86) 95 01/30/18 15:30 97.5 63 18 113/74 (87) 91 01/30/18 12:00 98.5 61 18 132/68 (89) 93 01/31/18 01/31/18 01/31/18 07:00 15:00 23:00 Intake Total 420 ml Balance 420 ml Result Diagram: 01/31/18 0400 01/31/18 0400 Laboratory Results Laboratory Tests Test 01/30/18 08:30 01/30/18 15:00 01/31/18 04:00 White Blood Count 1.9 TH/MM3 2.0 TH/MM3 Red Blood Count 3.37 MIL/MM3 3.21 MIL/MM3 Hemoglobin 11.1 GM/DL 10.4 GM/DL Hematocrit 32.2 % 30.8 % Mean Corpuscular Volume 95.5 FL 95.9 FL Mean Corpuscular Hemoglobin 32.9 PG 32.3 PG Mean Corpuscular Hemoglobin Concent 34.4 % 33.7 % Red Cell Distribution Width 15.9 % 15.5 % Platelet Count 187 TH/MM3 181 TH/MM3 Mean Platelet Volume 8.4 FL 8.5 FL Neutrophils (%) (Auto) 31.4 % Lymphocytes (%) (Auto) 55.2 % Monocytes (%) (Auto) 9.0 % Eosinophils (%) (Auto) 4.1 % Basophils (%) (Auto) 0.3 % Neutrophils # (Auto) 0.6 TH/MM3 Lymphocytes # (Auto) 1.1 TH/MM3 Monocytes # (Auto) 0.2 TH/MM3 Eosinophils # (Auto) 0.1 TH/MM3 Basophils # (Auto) 0.0 TH/MM3 CBC Comment AUTO DIFF Differential Total Cells Counted 100 Neutrophils % (Manual) 27 % Band Neutrophils % 5 % Lymphocytes % 55 % Monocytes % 9 % Eosinophils % 3 % Basophils % 1 % Neutrophils # (Manual) 0.6 TH/MM3 Differential Comment FINAL DIFF MANUAL Platelet Estimate NORMAL Platelet Morphology Comment NORMAL Ovalocytes 1+ Blood Urea Nitrogen 14 MG/DL Creatinine 0.66 MG/DL Random Glucose 100 MG/DL Calcium Level 8.7 MG/DL Magnesium Level 2.2 MG/DL Sodium Level 140 MEQ/L Potassium Level 4.0 MEQ/L Chloride Level 102 MEQ/L Carbon Dioxide Level 31.7 MEQ/L Anion Gap 6 MEQ/L Estimat Glomerular Filtration Rate 93 ML/MIN Administered Medications Medications (Trade) Dose Ordered Sig/Larry Route PRN Reason Start Time Stop Time Status Last Admin Dose Admin Sodium Chloride (NS Flush) 2 ml BID IV FLUSH 01/24/18 09:00 01/30/18 21:57 Acetaminophen/ Hydrocodone Bitart ([place] 7.5-325 Mg) 1 tab Q4H PRN PO PAIN SCALE 6 TO 10 01/24/18 04:30 01/28/18 14:08 Magnesium Hydroxide (Milk Of Magnesia Liq) 30 ml Q12H PRN PO Mild constipation 01/24/18 04:30 01/30/18 08:40 Sennosides (Senokot) 17.2 mg Q12H PRN PO Moderate constipation 01/24/18 04:30 01/26/18 08:52 Lactulose (Lactulose Liq) 30 ml DAILY PRN PO SEVERE CONSITIPATION 01/24/18 04:30 01/27/18 07:12 Enoxaparin Sodium (Lovenox Inj) 30 mg Q24H SQ 01/25/18 11:00 Future hold 01/29/18 09:22 Acetaminophen/ Hydrocodone Bitart ([place] 10-325 Mg) 1 tab Q3H PRN PO PAIN 3<10 01/24/18 11:45 01/31/18 05:01 Calcium/Vitamin D (Oscal-D 250-125) 250 mg TID PO 01/24/18 13:00 01/30/18 17:31 Cholecalciferol (Vitamin D3) 1,000 units DAILY PO 01/25/18 09:00 01/30/18 08:40 Senna/Docusate Sodium (Veena-Colace) 1 tab BID PO 01/24/18 21:00 01/30/18 08:40 Gabapentin (Neurontin) 300 mg BID PO 01/25/18 09:00 01/30/18 21:57 Bacitracin (Baciguent Oint) 1 applic DAILY TOPICAL 01/26/18 16:05 01/30/18 09:00 Zolpidem Tartrate (Ambien) 5 mg HS PRN PO insomnia 01/28/18 12:00 01/30/18 21:57 Cyclobenzaprine HCl (Flexeril) 5 mg Q8H PRN PO muscle spasm 01/29/18 16:15 01/31/18 03:00 Furosemide (Lasix) 40 mg DAILY PO 01/30/18 16:00 01/30/18 17:31 Objective Remarks GENERAL: Middle-aged lady, sitting up in bed, appears to be no acute distress, wearing sunglasses, she is obese , in no apparent distress. SKIN: No rashes, ecchymoses or lesions. Cool and dry. HEAD: Atraumatic. Normocephalic. No temporal or scalp tenderness. EYES: Pupils equal round and reactive. Extraocular motions intact. No scleral icterus. No injection or drainage. ENT: Nose without bleeding, purulent drainage or septal hematoma. Throat without erythema, tonsillar hypertrophy or exudate. Uvula midline. Airway patent. NECK: Trachea midline. No JVD or lymphadenopathy. Supple, nontender, no meningeal signs. CARDIOVASCULAR: Regular rate and rhythm without murmurs, gallops, or rubs. RESPIRATORY: Clear to auscultation. Breath sounds equal bilaterally. No wheezes , rales, or rhonchi. GASTROINTESTINAL: Abdomen soft, non-tender, nondistended. No hepato-splenomegaly , or palpable masses. No guarding. MUSCULOSKELETAL: Right leg in a removable cast, she has a big bag of ice on top of her right knee. Extremities without clubbing, cyanosis, or edema. No joint tenderness, effusion, or edema noted. No calf tenderness. Negative Homans sign bilaterally. NEUROLOGICAL: Awake and alert. Cranial nerves, visually impaired, no other sensory or motor deficits noted.. Motor and sensory grossly within normal limits. Five out of 5 muscle strength in all muscle groups. Normal speech. Assessment/Plan Assessment 57-year-old lady with pancytopenia, she has a low-grade neutropenia, minor thrombocytopenia and anemia which is normocytic. She tells me this is the first she has heard a abnormal blood counts and has in the past undergone blood work at various hospitals in this area as well as in [place] where she recently had cataract surgery. The patient denies alcohol abuse, she reports having been tested previously for hepatitis and was told she was negative. The patient denies other high risk activities she is a smoker however. I have requested an initial workup for her cytopenias including serum iron studies, LDH, serum protein electrophoresis, vitamin B12 and folic acid levels as well as review of her peripheral smear. Plan 1. Anemia and neutropenia: Bone marrow biopsy performed on 01/30/2018, I do not anticipate the results until next week. The patient does not need to remain in the hospital to await the results of bone marrow biopsy because I doubt a high- grade primary bone marrow disorder such as myelodysplasia or acute leukemia. I have attempted to reach out to my new patient referral's office to arrange outpatient follow-up, however I am informed due to the patient's residence and [address] and due to her lack of insurance she falls outside of the [facility]. She will therefore not be able to follow-up with me in the outpatient setting. I have explained this to the patient and have informed her that I will reach out to her with the results of bone marrow biopsy, should there be a primary hematologic disorder which requires outpatient hematology follow-up I will advise her to establish follow-up with a business planning director/ oncologist in [facility]. From an hematology/Oncologic standpoint she is clear for discharge. Romel Zapata MD Jan 31, 2018 08:06
[2018-01-31] MEDS: GABAPENTIN 300 MG CAP PO SCH ×2 (08:17→20:43)
[2018-01-31] MEDS: CHOLECALCIFEROL (VIT D3) 1000 UNIT TAB PO SCH (08:17)
[2018-01-31] MEDS: DOCUSATE SODIUM 50 MG/SENNA 8.6 MG TAB PO SCH ×2 (08:17→20:43)
[2018-01-31] MEDS: FUROSEMIDE 40 MG TAB PO SCH (08:17)
[2018-01-31] MEDS: CALCIUM/VITAMIN D 250 MG/125 U TAB PO SCH ×3 (08:17→17:37)
[2018-01-31] MEDS: BACITRACIN TOP OINT 15 GM TUBE TOPICAL SCH (08:18)
--- NOTE | 2018-01-31 08:25 | RADRPT ---
EXAM DATE: 01/30/2018 3:36 PM EDT AGE/SEX: 57 years / Female INDICATIONS: Bone marrow. CLINICAL DATA: This is the patient's initial encounter. Patient reports that signs and symptoms have been present for 1 day and indicates a pain score of 0/10. MEDICAL/SURGICAL HISTORY: . panocytopenia, anemia,neutropenia. None. COMPARISON: No prior exams available for comparison. SEDATION TIME (min): 30 min BIOPSY SITE: . Right iliac bone 4.5mg midazolam (Versed) IV 225mcg fentanyl (Sublimaze) IV DEVICE(S): 11 gauge Bone marrow biopsy needle 2 passes . . PROCEDURE: CT guided . pelvic biopsy Prior to the procedure informed consent was obtained. Any appropriate prior imaging studies were rev iewed. Using automated exposure control and adjustment of the mA and/or kV according to patient size , radiation dose was kept as low as reasonably achievable to obtain optimal diagnostic quality images . DICOM format image data is available electronically for review and comparison. The site was prepped in a sterile fashion. Full sterile technique was used, including cap, mask, dario rile gloves and gown and a large sterile sheet. Hand hygiene and 2% chlorhexidine and/or betadine/al cohol prep was utilized per protocol for cutaneous antisepsis. The skin and subcutaneous tissues wer e infiltrated with local anesthetic solution. With CT guidance the previously identified target was localized. Biopsy was performed using the presc ribed needle as above. Following biopsy marrow aspiration was performed with repeat puncture. [place] te hemostasis was obtained with compression at the puncture site. Follow-up CT scan reveals no hemorrhage. Conscious sedation was performed with the prescribed dosages and duration as above in the presence of an independent trained radiology nurse to assist in the monitoring of the patient. EKG and oximetry remained stable throughout the procedure. The patient tolerated the procedure well and there were no complications. The patient was sent to Radiology Outpatient Unit in stable condition. CONCLUSION: 1. Uncomplicated CT guided bone marrow aspirate. 2. Uncomplicated CT guided bone marrow biopsy. Electronically signed by: Be Durham MD 01/31/2018 8:23 AM EDT
[2018-01-31] MEDS: SODIUM CHLORIDE 0.9% FLUSH 10 ML FLUSH IV FLUSH SCH ×2 (08:44→20:43)
[2018-01-31 12:00] VITALS: BP 106/69; PULSE 67; RESP 16; TEMP 98; O2SAT 95
[2018-01-31] MEDS: ERGOCALCIFEROL (VIT D2) 50,000 UNIT CAP PO SCH (12:03)
[2018-01-31] MEDS ORDERED: PADIMATE (CHAPSTICK) 4.5 GM TUBE TOPICAL PRN (13:30)
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
[2018-01-31] MEDS: ACETAMINOPHEN/HYDROcodone 325 MG/5 MG TAB PO PRN ×2 (15:57→20:42)
[2018-01-31 16:00] VITALS: BP 111/56; PULSE 76; RESP 16; TEMP 98.1; O2SAT 93
[2018-01-31] MEDS ORDERED: RESP: ALBUTEROL 2.5 MG/IPRATROPIUM 0.5 MG NEB (PRN) NEB (16:00)
[2018-01-31] MEDS: SENNOSIDES 8.6 MG TAB PO PRN (17:37)
[2018-01-31 20:00] VITALS: BP 118/56; PULSE 62; RESP 17; TEMP 98.6; O2SAT 94
[2018-01-31] MEDS: ZOLPIDEM TARTRATE 5 MG TAB PO PRN (20:50)
[2018-02-01 00:01] VITALS: BP 108/57; PULSE 70; RESP 17; TEMP 98.6; O2SAT 94
[2018-02-01] MEDS: ACETAMINOPHEN/HYDROcodone 325 MG/5 MG TAB PO PRN ×4 (00:53→12:22)
[2018-02-01] MEDS: MAGNESIUM HYDROXIDE SUSP 30 ML CUP PO PRN (02:02)
[2018-02-01] MEDS: LACTULOSE SYRUP 20 GM/30 ML CUP PO PRN (02:02)
[2018-02-01 08:00] VITALS: BP 130/58; PULSE 72; RESP 18; TEMP 98.5; O2SAT 94
[2018-02-01] MEDS: GABAPENTIN 300 MG CAP PO SCH ×2 (08:42→17:12)
[2018-02-01] MEDS: CHOLECALCIFEROL (VIT D3) 1000 UNIT TAB PO SCH (08:42)
[2018-02-01] MEDS: FUROSEMIDE 40 MG TAB PO SCH (08:42)
[2018-02-01] MEDS: BACITRACIN TOP OINT 15 GM TUBE TOPICAL SCH (08:43)
[2018-02-01] MEDS: DOCUSATE SODIUM 50 MG/SENNA 8.6 MG TAB PO SCH ×2 (08:43→21:18)
[2018-02-01] MEDS: CALCIUM/VITAMIN D 250 MG/125 U TAB PO SCH ×3 (08:43→17:12)
[2018-02-01] MEDS: SODIUM CHLORIDE 0.9% FLUSH 10 ML FLUSH IV FLUSH SCH ×2 (08:45→21:18)
[2018-02-01] MEDS: ENOXAPARIN SODIUM 30 MG/0.3 ML SYRINGE SQ SCH ×2 (11:00→12:23)
[2018-02-01 12:00] VITALS: BP 111/63; PULSE 72; RESP 18; TEMP 97.4; O2SAT 93
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
[2018-02-01] MEDS: NICOTINE 21 MG/24 HR PATCH T-DERMAL SCH (15:45)
[2018-02-01] MEDS: BACLOFEN 10 MG TAB PO SCH ×2 (15:46→21:24)
[2018-02-01] MEDS: ACETAMINOPHEN/HYDROcodone 325 MG/7.5 MG TAB PO PRN ×2 (15:47→20:06)
[2018-02-01 16:00] VITALS: BP 110/54; PULSE 61; RESP 18; TEMP 97.1; O2SAT 94
[2018-02-01 20:00] VITALS: BP 108/55; PULSE 68; RESP 17; TEMP 98.7; O2SAT 95
[2018-02-01] MEDS: ZOLPIDEM TARTRATE 5 MG TAB PO PRN (21:28)
[2018-02-02 00:01] VITALS: BP 117/71; PULSE 70; RESP 17; TEMP 98; O2SAT 96
[2018-02-02] MEDS: ACETAMINOPHEN/HYDROcodone 325 MG/7.5 MG TAB PO PRN ×6 (00:26→21:14)
[2018-02-02] MEDS: BACLOFEN 10 MG TAB PO SCH ×3 (05:38→21:14)
--- NOTE | 2018-02-02 07:20 | PD.ONC.PN ---
Subjective Subjective Remarks Patient seen and examined, vital signs, labs, medications and pathology results reviewed including full cytometry. Patient's bone marrow biopsy results were discussed with pathology department on 02/01/2018. Subjectively; patient reports she is able to ambulate a little bit more, she continues have pain in her right leg at the site of surgery. She tells me she needed slightly higher dose of pain medication yesterday, she is on Percocet. Objective Data Date Time Temp Pulse Resp B/P (MAP) Pulse Ox O2 Delivery O2 Flow Rate FiO2 02/02/18 00:01 98.0 70 17 117/71 (86) 96 02/01/18 21:48 Room Air 02/01/18 20:00 98.7 68 17 108/55 (72) 95 02/01/18 16:00 97.1 61 18 110/54 (72) 94 02/01/18 12:00 97.4 72 18 111/63 (79) 93 02/01/18 08:00 98.5 72 18 130/58 (82) 94 02/02/18 02/02/18 02/02/18 07:00 15:00 23:00 Intake Total 600 ml Balance 600 ml Result Diagram: 01/31/18 0400 01/31/18 0400 Administered Medications Medications (Trade) Dose Ordered Sig/Larry Route PRN Reason Start Time Stop Time Status Last Admin Dose Admin Sodium Chloride (NS Flush) 2 ml BID IV FLUSH 01/24/18 09:00 02/01/18 08:45 Acetaminophen/ Hydrocodone Bitart ([place] 5-325 Mg) 1 tab Q4H PRN PO PAIN SCALE 3-5 01/24/18 04:30 02/01/18 12:22 Magnesium Hydroxide (Milk Of Magnesia Liq) 30 ml Q12H PRN PO Mild constipation 01/24/18 04:30 02/01/18 02:02 Sennosides (Senokot) 17.2 mg Q12H PRN PO Moderate constipation 01/24/18 04:30 01/31/18 17:37 Bisacodyl (Dulcolax Supp) 10 mg DAILY PRN RECTAL SEVERE CONSITIPATION 01/24/18 04:30 02/01/18 02:02 Lactulose (Lactulose Liq) 30 ml DAILY PRN PO SEVERE CONSITIPATION 01/24/18 04:30 02/01/18 02:02 Enoxaparin Sodium (Lovenox Inj) 30 mg Q24H SQ 01/25/18 11:00 Future hold 01/29/18 09:22 Calcium/Vitamin D (Oscal-D 250-125) 250 mg TID PO 01/24/18 13:00 02/01/18 17:12 Cholecalciferol (Vitamin D3) 1,000 units DAILY PO 01/25/18 09:00 02/01/18 08:42 Ergocalciferol (Drisdol) 50,000 units Q7D PO 01/24/18 11:45 01/31/18 12:03 Senna/Docusate Sodium (Veena-Colace) 1 tab BID PO 01/24/18 21:00 01/31/18 20:43 Bacitracin (Baciguent Oint) 1 applic DAILY TOPICAL 01/26/18 16:05 02/01/18 08:43 Zolpidem Tartrate (Ambien) 5 mg HS PRN PO insomnia 01/28/18 12:00 02/01/18 21:28 Furosemide (Lasix) 40 mg DAILY PO 01/30/18 16:00 02/01/18 08:42 Gabapentin (Neurontin) 300 mg TID PO 02/01/18 18:00 02/01/18 17:12 Baclofen (Lioresal) 10 mg Q8HR PO 02/01/18 15:30 02/02/18 05:38 Acetaminophen/ Hydrocodone Bitart ([place] 7.5-325 Mg) 1 tab Q4H PRN PO PAIN 6-02/01/18 15:30 02/02/18 04:11 Objective Remarks GENERAL: Middle-aged lady, sitting up in bed, appears to be no acute distress, wearing sunglasses, she is obese , in no apparent distress. SKIN: No rashes, ecchymoses or lesions. Cool and dry. HEAD: Atraumatic. Normocephalic. No temporal or scalp tenderness. EYES: Pupils equal round and reactive. Extraocular motions intact. No scleral icterus. No injection or drainage. ENT: Nose without bleeding, purulent drainage or septal hematoma. Throat without erythema, tonsillar hypertrophy or exudate. Uvula midline. Airway patent. NECK: Trachea midline. No JVD or lymphadenopathy. Supple, nontender, no meningeal signs. CARDIOVASCULAR: Regular rate and rhythm without murmurs, gallops, or rubs. RESPIRATORY: Clear to auscultation. Breath sounds equal bilaterally. No wheezes , rales, or rhonchi. GASTROINTESTINAL: Abdomen soft, non-tender, nondistended. No hepato-splenomegaly , or palpable masses. No guarding. MUSCULOSKELETAL: Right leg in a removable cast, she has a big bag of ice on top of her right knee. Extremities without clubbing, cyanosis, or edema. No joint tenderness, effusion, or edema noted. No calf tenderness. Negative Homans sign bilaterally. NEUROLOGICAL: Awake and alert. Cranial nerves, visually impaired, no other sensory or motor deficits noted.. Motor and sensory grossly within normal limits. Five out of 5 muscle strength in all muscle groups. Normal speech. Assessment/Plan Assessment 57-year-old lady with pancytopenia, she has a low-grade neutropenia, minor thrombocytopenia and anemia which is normocytic. She tells me this is the first she has heard a abnormal blood counts and has in the past undergone blood work at various hospitals in this area as well as in [place] where she recently had cataract surgery. The patient denies alcohol abuse, she reports having been tested previously for hepatitis and was told she was negative. The patient denies other high risk activities she is a smoker however. I have requested an initial workup for her cytopenias including serum iron studies, LDH, serum protein electrophoresis, vitamin B12 and folic acid levels as well as review of her peripheral smear. Plan 1. 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 If the T-cell gene rearrangement studies are consistent with a monoclonal T-cell population this would confirm this diagnosis. I did talk to the patient about the likely diagnosis of LGL leukemia, I explained to the patient that this is typically an indolent primary bone marrow disorder which is often associated with underlying rheumatologic condition such as rheumatoid arthritis or systemic lupus erythematosus. Typical treatment consists of immunosuppression therapy with methotrexate and corticosteroids with folic acid supplementation. Typical manifestations of T-cell LGL leukemia is that of unexplained cytopenias. I did explain to the patient that she will require outpatient hematology follow-up for management and monitoring of her disease. At this point, I would hold off on initiating immunosuppression with methotrexate and corticosteroids at least until she has fully healed up from her recent ORIF of the right tibial plateau fracture. Await final pathology results. From an hematology/Oncologic standpoint she is clear for discharge. Romel Zapata MD Feb 02, 2018 07:20
[2018-02-02 08:00] VITALS: BP 134/63; PULSE 72; RESP 16; TEMP 98.5; O2SAT 97
[2018-02-02] MEDS: CALCIUM/VITAMIN D 250 MG/125 U TAB PO SCH ×3 (08:24→17:56)
[2018-02-02] MEDS: DOCUSATE SODIUM 50 MG/SENNA 8.6 MG TAB PO SCH ×2 (08:24→21:14)
[2018-02-02] MEDS: GABAPENTIN 300 MG CAP PO SCH ×3 (08:24→17:56)
[2018-02-02] MEDS: SODIUM CHLORIDE 0.9% FLUSH 10 ML FLUSH IV FLUSH SCH ×2 (08:24→21:15)
[2018-02-02] MEDS: CHOLECALCIFEROL (VIT D3) 1000 UNIT TAB PO SCH (08:24)
[2018-02-02] MEDS: REMOVE OLD PATCH T-DERMAL SCH (08:25)
[2018-02-02] MEDS: FUROSEMIDE 40 MG TAB PO SCH (08:25)
[2018-02-02] MEDS: NICOTINE 21 MG/24 HR PATCH T-DERMAL SCH (08:25)
[2018-02-02] MEDS: BACITRACIN TOP OINT 15 GM TUBE TOPICAL SCH (08:27)
[2018-02-02 12:00] VITALS: BP 121/57; PULSE 62; RESP 16; TEMP 98.5; O2SAT 97
[2018-02-02] MEDS: ENOXAPARIN SODIUM 30 MG/0.3 ML SYRINGE SQ SCH (12:05)
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
[2018-02-02] MEDS ORDERED: QC B500O TOPICAL (15:40)
[2018-02-02] MEDS ORDERED: NEUR300C PO (15:40)
[2018-02-02] MEDS ORDERED: HYDR-3580 PO (15:40)
[2018-02-02] MEDS ORDERED: NICO21DI25 T-DERMAL (15:40)
[2018-02-02] MEDS ORDERED: BACL10TA PO (15:40)
[2018-02-02 16:00] VITALS: BP 127/59; PULSE 76; RESP 18; TEMP 98.2; O2SAT 98
--- NOTE | 2018-02-02 16:23 | HHI.FF ---
Face to Face Verification Diagnosis: (1) Tibial plateau fracture, right (2) Pancytopenia Physical Therapy Order: Evaluate and Treat I have seen patient Robina Zarate on 02/02/18. My clinical findings support the need for the requested home health care services because: Ltd mobility - disease progression Deconditioned w/ increased weakness I certify that my clinical findings support that this patient is homebound because: Unsteady gait/balance Curry Hernández Feb 02, 2018 4:23 pm
--- NOTE | 2018-02-02 16:24 | HHI.DCPOC ---
Discharge Care Plan Diagnosis: (1) Tibial plateau fracture, right Your Health Problems Are: Difficulty with ADL Goals to Promote Your Health * To prevent worsening of your condition and complications * To maintain your health at the optimal level Directions to Meet Your Goals Take your medications as prescribed Follow your dietary instruction Follow activity as directed Keep your appointments as scheduled Take your immunizations and boosters as scheduled If your symptoms worsen call your PCP, if no PCP go to Urgent Care Center or Emergency Room Smoking is Dangerous to Your Health. Avoid second hand smoke Call the 24-hour hour crisis hotline for domestic abuse at Curry Hernández Feb 02, 2018 4:24 pm
[2018-02-02 19:30] VITALS: BP 110/71; PULSE 65; RESP 18; TEMP 98.1; O2SAT 97
[2018-02-02 23:10] VITALS: BP 113/63; PULSE 73; RESP 18; TEMP 98.2; O2SAT 95
[2018-02-03] MEDS: ACETAMINOPHEN/HYDROcodone 325 MG/7.5 MG TAB PO PRN ×4 (01:25→14:23)
[2018-02-03] MEDS: BACLOFEN 10 MG TAB PO SCH ×2 (05:23→14:22)
[2018-02-03 08:00] VITALS: BP 149/68; PULSE 77; RESP 18; TEMP 98.2; O2SAT 96
[2018-02-03] MEDS: REMOVE OLD PATCH T-DERMAL SCH (08:36)
[2018-02-03] MEDS: NICOTINE 21 MG/24 HR PATCH T-DERMAL SCH (08:36)
[2018-02-03] MEDS: SODIUM CHLORIDE 0.9% FLUSH 10 ML FLUSH IV FLUSH SCH (08:36)
[2018-02-03] MEDS: BACITRACIN TOP OINT 15 GM TUBE TOPICAL SCH (08:37)
[2018-02-03] MEDS: FUROSEMIDE 40 MG TAB PO SCH (08:37)
[2018-02-03] MEDS: GABAPENTIN 300 MG CAP PO SCH ×2 (08:37→14:22)
[2018-02-03] MEDS: CALCIUM/VITAMIN D 250 MG/125 U TAB PO SCH ×2 (08:37→14:22)
[2018-02-03] MEDS: DOCUSATE SODIUM 50 MG/SENNA 8.6 MG TAB PO SCH (08:37)
[2018-02-03] MEDS: CHOLECALCIFEROL (VIT D3) 1000 UNIT TAB PO SCH (08:38)
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
[2018-02-03] MEDS: ENOXAPARIN SODIUM 30 MG/0.3 ML SYRINGE SQ SCH (10:26)
[2018-02-03 12:00] VITALS: BP 135/69; PULSE 79; RESP 18; TEMP 97.9; O2SAT 96
--- NOTE | 2018-02-03 14:12 | HHI.FF ---
Face to Face Verification Diagnosis: (1) Tibial plateau fracture, right Physical Therapy Order: Evaluate and Treat Home Health Nursing Order: Wound care and dressing changes Instructions: Postsurgical recommendations as per orthopedics. I have seen patient Robina Zarate on 02/03/18. My clinical findings support the need for the requested home health care services because: Limited ability to care for self I certify that my clinical findings support that this patient is homebound because: Unsteady gait/balance Ryan Zee MD Feb 03, 2018 14:12
[2018-02-03 16:00] VITALS: BP 109/66; PULSE 68; RESP 18; TEMP 98; O2SAT 96
== END 2018-02-03 17:35 | disposition home health service (06) | DRG 493 ==
LOC: NEPC 02:06 → NEDA 04:02 → NEPFCDU 05:09 → N06B 07:59
PROVIDERS: ADMIT Internal Medicine; ATTEND Internal Medicine
PROC: 0QSG04Z Reposition Right Tibia with Internal Fixation Device, Open Approach (ICD-10-PCS; principal; 2018-01-24 10:04)
PROC: 07DR3ZX Extraction of Iliac Bone Marrow, Percutaneous Approach, Diagnostic (ICD-10-PCS; 2018-01-31)
DX: S82.141A Displaced bicondylar fracture of right tibia, initial encounter for closed fracture (principal); D61.818 Other pancytopenia; C91.Z0 Other lymphoid leukemia not having achieved remission; S83.91XA Sprain of unspecified site of right knee, initial encounter; S82.839A Other fracture of upper and lower end of unspecified fibula, initial encounter for closed fracture; K76.89 Other specified diseases of liver; I10 Essential (primary) hypertension; R63.4 Abnormal weight loss; E66.9 Obesity, unspecified; R63.0 Anorexia; K82.8 Other specified diseases of gallbladder; H54.62 Unqualified visual loss, left eye, normal vision right eye; F17.210 Nicotine dependence, cigarettes, uncomplicated; V18.0XXA Pedal cycle driver injured in noncollision transport accident in nontraffic accident, initial encounter; Y93.55 Activity, bike riding; Z68.32 Body mass index [BMI] 32.0-32.9, adult; Z82.49 Family history of ischemic heart disease and other diseases of the circulatory system; Z91.041 Radiographic dye allergy status
CPT/HCPCS: 36415; 38222; 71045; 73560; 76000; 76705; 77012; 80048; 80074; 80076; 81001; 82607; 82652; 82728; 82746; 83036; 83540; 83550; 83615; 83735; 84165; 84443; 85007; 85025; 85027; 85044; 85097; 85610; 85730; 87389; 88305; 88311; 88313; 93005; 94150; 96361; 96374; 96375; 99151; 99152; 99153; C1713; C1830; G0475; J0131; J0690; J1100; J1580; J1650; J2175; J2250; J2270; J2405; J2710; J2765; J3010; J3370; J7030; J7050; J7120; L1830